=== PATIENT | male | born 1980 ===

== ENCOUNTER 2021-12-16 16:24 | Outpatient (REF) | payer OTHER, SELFPAY ==
[2021-12-18 11:22] LABS: COVID-19 RT-PCR UVMMC Result Positive (Negative)
== END 2021-12-16 16:25 | disposition home or self-care (01) ==
LOC: LBN 16:24
PROVIDERS: Visit Provider Nurse Practitioner Family
DX: Z20.822 Contact with and (suspected) exposure to COVID-19 (principal)
CPT/HCPCS: U0003